=== PATIENT | female | born 1980 | race Caucasian/White ===

== ENCOUNTER 2016-12-23 11:53 | Inpatient (IN) | payer BC ==
[~2016-12-23] VITALS: Ht 162.6 cm; Wt 61.2 kg
[2016-12-23] MEDS ORDERED: NKM (12:03)
[2016-12-23 13:03] LABS: MEAN CORPUSCULAR HGB CONC 34.1 G/DL (32.0-36.0); MEAN CORPUSCULAR VOLUME 91 FL (80-99); MEAN PLATELET VOLUME 8.4 FL (6.5-10.1); PLATELET COUNT 218 K/UL (150-450); RED BLOOD COUNT 5.24 M/UL (4.20-5.40); RED CELL DISTRIBUTION WIDTH 10.9 % (11.6-14.8); WHITE BLOOD COUNT 12.1 K/UL (4.8-10.8)
[2016-12-23 13:12] VITALS: BP 118/57
[2016-12-23 13:13] LABS: INR 1.1 (0.9-1.1); PROTHROMBIN TIME 11.4 SEC (9.30-11.50)
[2016-12-23 13:17] LABS: TROPONIN I < 0.30 ng/mL (<=0.30)
[2016-12-23 13:20] LABS: ALANINE AMINOTRANSFERASE 10 U/L (3-33); ALBUMIN/GLOBULIN RATIO 1.3 (1.0-2.7); ANION GAP 18 (5-15); ASPARTATE AMINO TRANSFERASE 16 U/L (5-40); CALCIUM 9.2 mg/dL (8.6-10.2); CARBON DIOXIDE 24 mEQ/L (20-30); CHLORIDE 93 mEQ/L (98-107); CREATININE 1.1 mg/dL (0.5-0.9); GLOMERULAR FILTRATION RATE 55.9 mL/min (>60); HEMOLYSIS 0; LIPASE 20 U/L (< 60); POTASSIUM 3.8 mEQ/L (3.4-4.9); SODIUM 135 mEQ/L (135-145); TOTAL PROTEIN 7.5 g/dL (6.6-8.7)
[2016-12-23 13:29] LABS: BAND NEUTROPHILS % (MANUAL) 2 % (0-8); BASOPHILS % (MANUAL) 0 % (0-2); EOSINOPHILS % (MANUAL) 1 % (0-3); LYMPHOCYTES % (MANUAL) 1 % (20-45); NEUTROPHILS % (MANUAL) 93 % (45-75); PLATELET ESTIMATE ADEQUATE; PLATELET MORPHOLOGY NORMAL; TOTAL CELLS COUNTED 100
[2016-12-23 13:30] LABS: ANISOCYTOSIS 1+
[2016-12-23 13:31] LABS: CKMB < 1.5 ng/mL (< 3.8)
[2016-12-23 13:41] LABS: BILIRUBIN,DIRECT 0.3 mg/dL (0.1-0.3)
[2016-12-23] MEDS ORDERED: Albuterol ud Inhalation HHN ONE (14:30)
[2016-12-23] MEDS ORDERED: Ipratropium 0.02% Inh Soln 2.5ml UD HHN ONE (14:30)
[2016-12-23] MEDS ORDERED: Solu-MEDROL 125mg Inj IVP ONE (14:30)
--- NOTE | 2016-12-23 14:33 | Diagnostic Imaging Report ---
ndication: SOB Technique: IV administration nonionic contrast. Spiral acquisitions obtained from the lung bases to the lung apices. Multiplanar and 3-D reconstructions were generated. Total dose length product findings 7 mGycm. CTDIvol(s) 12, 12, 16 mGy Comparison: None Findings: No intraluminal filling defects or other findings to suggest acute pulmonary embolus demonstrated. Normal caliber thoracic aorta without evidence of dissection. Normal great vessel origins. Normal caliber pulmonary arteries. No right ventricular dilatation. There is some scarring at the lung apices. Occasional areas of atelectasis and some scattered patchy groundglass opacities are seen bilaterally. No infiltrates. No masses. The heart size is normal. No pericardial effusion. There are prominent subcarinal lymph nodes, measuring up to 25 mm long axis dimension. Prominent soft tissue in the pulmonary olga likely reflect prominent lymph nodes as well.. The included portions of the thyroid are unremarkable. Included abdominal viscera are unremarkable. Impression: Negative for acute pulmonary embolus or other acute thoracic vascular pathology Scattered areas of atelectasis. Scattered groundglass opacities are also present, nonspecific. These may also represent areas of atelectasis, could represent focal areas of inflammation, amongst many differential possibilities. Borderline bilateral hilar and subcarinal lymphadenopathy. Nonspecific as regards etiology Findings discussed by phone with Dr. Solis at the time of interpretation The CT scanner at [facility] is accredited by the [employer] and the scans are performed using protocols designed to limit radiation exposure to as low as reasonably achievable to attain images of sufficient resolution adequate for diagnostic evaluation.
--- NOTE | 2016-12-23 14:40 | Emergency Room Report ---
History of Present Illness General Chief Complaint: Chest Pain Source: Patient, Family Member Present Illness HPI Patient reports that last night he would doing exercises dancing technique at home Soon after that the patient had mild shortness of breath however since then the patient has had increased tightness in her chest this is associated with any shortness of breath sensation Denies any vomiting or diarrhea Denies any fevers or chills Patient is on control pills denies any recent travel Patient denies any obvious pleurisy however does continue to describe a chest tightness sensation Patient reports having asthma as a child but has not had any problems since then Allergies: Coded Allergies: No Known Allergies (Unverified , 12/23/16) Patient History Past Medical History: see triage record Pertinent Family History: none Last Menstrual Period: 12/09/16 Now: No Reviewed Nursing Documentation: PMH: Agreed, PSxH: Agreed Nursing Documentation-PMH Past Medical History: No History, Except For Hx Asthma: Yes Review of Systems All Other Systems: negative except mentioned in HPI Physical Exam Vital Signs Date Time Temp Pulse Resp B/P Pulse Ox O2 Delivery O2 Flow Rate FiO2 12/23/16 11:59 99.3 117 18 106/63 96 Room Air Sp02 EP Interpretation: reviewed, normal General Appearance: mild distress - appears uncomfortable Head: normocephalic, atraumatic Eyes: bilateral eye EOMI, bilateral eye PERRL ENT: hearing grossly normal, normal pharynx, TMs + canals normal, uvula midline Neck: full range of motion, supple, no meningismus, no bony tend Respiratory: no rhonchi, no retraction, no accessory muscle use, other - Appears tachypneic, crackles diffusely Cardiovascular #1: no edema, no gallop, no JVD, no murmur, tachycardia Gastrointestinal: normal bowel sounds, non tender, soft, no mass, no organomegaly, non-distended, no guarding, no hernia, no pulsatile mass, no rebound Genitourinary: no CVA tenderness Musculoskeletal: normal inspection Neurologic: oriented x3, responsive, regional planner III-XII nml as tested, motor strength/ tone normal, sensory intact Psychiatric: mood/affect normal Skin: normal color, no rash, warm/dry, palpation normal Lymphatic: normal inspection, no adenopathy Medical Decision Making Diagnostic Impression: Primary Impression: Chest pain Additional Impression: Dyspnea ER Course Patient is a fairly complex patient with multiple differential to consideration including but not limited to cardiac cardiopulmonary and vascular emergencies Given the patient's tachypnea she was placed on oxygen CAT scan imaging shows multiple abnormal findings Patient lower also shows several borderlinechanges given these findings patient will require further inpatient care Labs Test 12/23/16 12:30 12/23/16 12:45 12/23/16 12:54 Urine HCG, Qualitative Negative White Blood Count 12.1 K/UL (4.8-10.8) Red Blood Count 5.24 M/UL (4.20-5.40) Hemoglobin 16.3 G/DL (12.0-16.0) Hematocrit 47.7 % (37.0-47.0) Mean Corpuscular Volume 91 FL (80-99) Mean Corpuscular Hemoglobin 31.0 PG (27.0-31.0) Mean Corpuscular Hemoglobin Concent 34.1 G/DL (32.0-36.0) Red Cell Distribution Width 10.9 % (11.6-14.8) Platelet Count 218 K/UL (150-450) Mean Platelet Volume 8.4 FL (6.5-10.1) Neutrophils (%) (Auto) % (45.0-75.0) Lymphocytes (%) (Auto) % (20.0-45.0) Monocytes (%) (Auto) % (1.0-10.0) Eosinophils (%) (Auto) % (0.0-3.0) Basophils (%) (Auto) % (0.0-2.0) Differential Total Cells Counted 100 Neutrophils % (Manual) 93 % (45-75) Lymphocytes % (Manual) 1 % (20-45) Monocytes % (Manual) 3 % (1-10) Eosinophils % (Manual) 1 % (0-3) Basophils % (Manual) 0 % (0-2) Band Neutrophils 2 % (0-8) Platelet Estimate Adequate Platelet Morphology Normal Red Blood Cell Morphology Anisocytosis 1+ Sodium Level 135 mEQ/L (135-145) Potassium Level 3.8 mEQ/L (3.4-4.9) Chloride Level 93 mEQ/L (98-107) Carbon Dioxide Level 24 mEQ/L (20-30) Anion Gap 18 (5-15) Blood Urea Nitrogen 8 mg/dL (7-23) Creatinine 1.1 mg/dL (0.5-0.9) Estimat Glomerular Filtration Rate 55.9 mL/min (>60) Glucose Level 175 mg/dL (74-106) Calcium Level 9.2 mg/dL (8.6-10.2) Total Bilirubin 2.5 mg/dL (0.0-1.2) Direct Bilirubin 0.3 mg/dL (0.1-0.3) Aspartate Amino Transf (AST/SGOT) 16 U/L (5-40) Alanine Aminotransferase (ALT/SGPT) 10 U/L (3-33) Alkaline Phosphatase 40 U/L (35-104) Total Creatine Kinase 84 U/L (26-140) Creatine Kinase MB < 1.5 ng/mL (< 3.8) Creatine Kinase MB Relative Index Troponin I < 0.30 ng/mL (<=0.30) Pro-B-Type Natriuretic Peptide 361 pg/mL (0-125) Total Protein 7.5 g/dL (6.6-8.7) Albumin 4.3 g/dL (3.5-5.2) Globulin 3.2 g/dL Albumin/Globulin Ratio 1.3 (1.0-2.7) Lipase 20 U/L (< 60) Prothrombin Time 11.4 SEC (9.30-11.50) Prothromb Time International Ratio 1.1 (0.9-1.1) Activated Partial Thromboplast Time 27 SEC (23-33) Labs Test 12/23/16 12:30 12/23/16 12:45 12/23/16 12:54 Urine HCG, Qualitative Negative White Blood Count 12.1 K/UL (4.8-10.8) Red Blood Count 5.24 M/UL (4.20-5.40) Hemoglobin 16.3 G/DL (12.0-16.0) Hematocrit 47.7 % (37.0-47.0) Mean Corpuscular Volume 91 FL (80-99) Mean Corpuscular Hemoglobin 31.0 PG (27.0-31.0) Mean Corpuscular Hemoglobin Concent 34.1 G/DL (32.0-36.0) Red Cell Distribution Width 10.9 % (11.6-14.8) Platelet Count 218 K/UL (150-450) Mean Platelet Volume 8.4 FL (6.5-10.1) Neutrophils (%) (Auto) % (45.0-75.0) Lymphocytes (%) (Auto) % (20.0-45.0) Monocytes (%) (Auto) % (1.0-10.0) Eosinophils (%) (Auto) % (0.0-3.0) Basophils (%) (Auto) % (0.0-2.0) Differential Total Cells Counted 100 Neutrophils % (Manual) 93 % (45-75) Lymphocytes % (Manual) 1 % (20-45) Monocytes % (Manual) 3 % (1-10) Eosinophils % (Manual) 1 % (0-3) Basophils % (Manual) 0 % (0-2) Band Neutrophils 2 % (0-8) Platelet Estimate Adequate Platelet Morphology Normal Red Blood Cell Morphology Anisocytosis 1+ Sodium Level 135 mEQ/L (135-145) Potassium Level 3.8 mEQ/L (3.4-4.9) Chloride Level 93 mEQ/L (98-107) Carbon Dioxide Level 24 mEQ/L (20-30) Anion Gap 18 (5-15) Blood Urea Nitrogen 8 mg/dL (7-23) Creatinine 1.1 mg/dL (0.5-0.9) Estimat Glomerular Filtration Rate 55.9 mL/min (>60) Glucose Level 175 mg/dL (74-106) Calcium Level 9.2 mg/dL (8.6-10.2) Total Bilirubin 2.5 mg/dL (0.0-1.2) Direct Bilirubin 0.3 mg/dL (0.1-0.3) Aspartate Amino Transf (AST/SGOT) 16 U/L (5-40) Alanine Aminotransferase (ALT/SGPT) 10 U/L (3-33) Alkaline Phosphatase 40 U/L (35-104) Total Creatine Kinase 84 U/L (26-140) Creatine Kinase MB < 1.5 ng/mL (< 3.8) Creatine Kinase MB Relative Index Troponin I < 0.30 ng/mL (<=0.30) Pro-B-Type Natriuretic Peptide 361 pg/mL (0-125) Total Protein 7.5 g/dL (6.6-8.7) Albumin 4.3 g/dL (3.5-5.2) Globulin 3.2 g/dL Albumin/Globulin Ratio 1.3 (1.0-2.7) Lipase 20 U/L (< 60) Prothrombin Time 11.4 SEC (9.30-11.50) Prothromb Time International Ratio 1.1 (0.9-1.1) Activated Partial Thromboplast Time 27 SEC (23-33) EKG Diagnostic Results Rate: normal Rhythm: NSR ST Segments: no acute changes Rhythm Strip Diag. Results EP Interpretation: yes Rate: 88 Rhythm: NSR, no PVC's, no ectopy CT/MRI/US Diagnostic Results CT/MRI/US Diagnostic Results : Impression CT chestImpression: Negative for acute pulmonary embolus or other acute thoracic vascular pathology Scattered areas of atelectasis. Scattered groundglass opacities are also present, nonspecific. These may also represent areas of atelectasis, could represent focal areas of inflammation, amongst many differential possibilities. Borderline bilateral hilar and subcarinal lymphadenopathy. Nonspecific as regards etiology Last Vital Signs Date Time Temp Pulse Resp B/P Pulse Ox O2 Delivery O2 Flow Rate FiO2 12/23/16 13:12 105 20 Room Air 12/23/16 13:12 98.9 118/57 100 Status: improved Disposition: ADMITTED INPATIENT Condition: Serious Referrals: NON PHYSICIAN (PCP) LILIAN SHERWOOD D.O. Dec 23, 2016 14:40
[2016-12-23 16:55] VITALS: BP 114/60
[2016-12-23] MEDS ORDERED: LORazepam 1mg tab ORAL PRN (17:30)
[2016-12-23] MEDS ORDERED: Morphine Sulfate 2mg/ml Inj IVP PRN (17:30)
[2016-12-23] MEDS ORDERED: Zolpidem 5mg tab ORAL PRN (17:30)
[2016-12-23] MEDS ORDERED: Morphine Sulfate 4mg/ml Inj IVP PRN (17:30)
--- NOTE | 2016-12-23 19:10 | Consultation ---
Consult Note Assessment/Plan dict prob asthma exacerbation pneumonia cont abx, steroids, HHN COLEMAN REYES Dec 23, 2016 19:10
[2016-12-23] MEDS: Azithromycin 500 MG in D5W 275 ML IV SCH (19:32)
[2016-12-23] MEDS: DuoNeb 0.5-3(2.5)mg/3ml neb HHN SCH (19:46)
[2016-12-23] MEDS ORDERED: Milk of Magnesia 30ml Ud ORAL PRN (21:00)
[2016-12-23] MEDS ORDERED: Solu-MEDROL 40mg Inj IVP SCH (22:00)
--- NOTE | 2016-12-23 23:48 | Consultation ---
DATE OF CONSULTATION: 12/23/2016 PULMONARY CONSULTATION HISTORY OF PRESENT ILLNESS: The patient is a very pleasant 36-year-old woman, who states that she was having shortness of breath yesterday last evening when she was dancing. She was quite uncomfortable. At home, she was short of breath during the night again had some nausea. She had near-syncope. She came to the emergency department today. A CT angiogram of the chest showed no pulmonary emboli but showed some mild atelectasis or infiltrate. Admission was arranged. The patient has a history of asthma as a child and was hospitalized several times. She states that she grew out of it at age 11 and does not use any asthma medications now. She does have a history of recurrent syncope and previous evaluation has been negative. She is aware when she is going to pass out and gets down to the floor so that she does not fall. The patient has no current chest pain, wheezing, cough, sputum production, hemoptysis, fever, chills, sweats, or myalgias. She has no sick contacts. PAST MEDICAL HISTORY: Asthma as noted above as well as syncope. ALLERGIES: She does not tolerate theophylline. MEDICATIONS: control pills. REVIEW OF SYSTEMS: Otherwise unremarkable. SOCIAL HISTORY: She does not drink or smoke. She lives with her . PHYSICAL EXAMINATION: GENERAL: The patient is alert and responds appropriately. VITAL SIGNS: She had a temperature of 99.3 degrees and her heart rate was 117 when she came to the emergency department. Saturation was 96% on room air. She appears to be in mild distress and was tachypneic with some rales in the emergency department. On exam at the present, she is in no distress after getting a breathing treatment. HEENT: The head is normocephalic. NECK: No jugular venous distention. Lymph nodes are not enlarged. CHEST: Clear. CARDIAC: Rhythm is regular. ABDOMEN: Soft and nontender. EXTREMITIES: No edema. LABORATORY AND DIAGNOSTIC DATA: Laboratory studies and x-rays are reviewed. The white count, hemoglobin and platelet count are normal. The chemistry shows creatinine of 1.1. Blood sugar is 175. Bilirubin is 2.5. Troponin is negative. IMPRESSION: 1. Dyspnea likely due to asthma. 2. Pulmonary infiltrates possibly due to pneumonia. 3. History of recurrent syncope. PLAN: The patient is on appropriate antibiotic therapy. We will continue nebulizer treatments and order steroids to be continued. Early discharge is anticipated. Fredis Ricardo M.D. DR: JOSÉ JOB#: [id number] CC: Marco Sheldon M.D.; Fax#: [phone] Ricardo M.D. ; Fax#: [phone]
[2016-12-23] MEDS: Solu-MEDROL 40mg Inj IVP SCH (23:51)
[2016-12-24] VITALS: BP 108/49
[2016-12-24] MEDS: DuoNeb 0.5-3(2.5)mg/3ml neb HHN SCH ×4 (01:19→20:04)
[2016-12-24 04:00] VITALS: BP 100/42
[2016-12-24 08:33] VITALS: BP 100/48
[2016-12-24] MEDS: Solu-MEDROL 40mg Inj IVP SCH ×3 (08:56→23:39)
[2016-12-24] MEDS ORDERED: cefTRIAXone 1 GM in D5W 55 ML IV SCH ×2 (09:00→09:45)
[2016-12-24] MEDS ORDERED: cefTRIAXone 1 GM in NS 55 ML IV SCH (09:45)
[2016-12-24 11:48] VITALS: BP 95/52
[2016-12-24 16:00] VITALS: BP 104/47
[2016-12-24] MEDS ORDERED: Tubing IV Secondary IV ONE (17:09)
--- NOTE | 2016-12-24 18:21 | Pulmonology Progress Note ---
Assessment/Plan Assessment/Plan 1. Dyspnea likely due to asthma. 2. Pulmonary infiltrates possibly due to pneumonia. 3. History of recurrent syncope. no SOB now says she was on nitrofurantoin this can cause pulm infiltrates advised not to take any longer episodes of brief chest pressure for a few seconds x yrs ?esophageal spasm await echo disc w Dr Pito mccoy planning Subjective Cardiovascular: Reports: chest pain Allergies: Coded Allergies: No Known Allergies (Unverified , 12/23/16) Objective Last 24 Hour Vital Signs Date Time Temp Pulse Resp B/P Pulse Ox O2 Delivery O2 Flow Rate FiO2 12/24/16 16:00 97.7 88 21 104/47 98 12/24/16 15:50 78 16 100 Nasal Cannula 2.0 28 12/24/16 15:40 28 12/24/16 15:40 71 16 98 Nasal Cannula 2.0 28 12/24/16 12:00 99 12/24/16 11:48 97.0 80 18 95/52 96 Nasal Cannula 2.0 12/24/16 08:33 97.9 88 18 100/48 98 Room Air 12/24/16 08:00 84 12/24/16 07:48 81 16 100 Nasal Cannula 2.0 28 12/24/16 07:38 28 12/24/16 07:38 Nasal Cannula 2.0 28 12/24/16 07:38 78 15 98 Nasal Cannula 2.0 28 12/24/16 07:38 98 Nasal Cannula 2.0 28 12/24/16 04:00 79 12/24/16 04:00 97.2 71 20 100/42 96 Room Air 12/24/16 01:26 82 18 100 Nasal Cannula 2.0 12/24/16 01:19 28 12/24/16 01:19 85 18 99 Nasal Cannula 2.0 28 12/24/16 00:00 81 12/24/16 00:00 98.2 81 20 108/49 97 Room Air 12/23/16 20:00 99 18 99 Nasal Cannula 2.0 12/23/16 20:00 99 12/23/16 19:49 Nasal Cannula 2.0 28 12/23/16 19:49 97 Nasal Cannula 2.0 28 12/23/16 19:47 28 12/23/16 19:47 97 18 97 Nasal Cannula 2.0 28 12/23/16 19:47 97 18 Nasal Cannula 2.0 28 Intake and Output 12/23/16 12/24/16 19:00 07:00 # Voids 1 1 General Appearance: no acute distress Respiratory/Chest: lungs clear Cardiovascular: normal rate Current Medications Medications (Trade) Dose Ordered Sig/Serge Route PRN Reason Start Time Stop Time Status Last Admin Dose Admin Acetaminophen (Tylenol) 650 mg Q4H PRN ORAL Mild Pain (Pain Scale 1-3) 12/23/16 17:30 01/22/17 17:29 Albuterol/ Ipratropium 3 ml 3 ml Q6HRT HHN 12/23/16 19:00 12/28/16 18:59 12/24/16 15:39 Azithromycin/ Dextrose (Zithromax/D5W) 275 ml @ 275 mls/hr Q24H IV 12/23/16 19:00 12/30/16 18:59 12/23/16 19:32 Ceftriaxone Sodium/Sodium Chloride (Rocephin/Sodium Chloride) 55 ml @ 110 mls/hr Q24H IV 12/25/16 09:00 12/31/16 08:59 Lorazepam (Ativan) 1 mg Q4H PRN ORAL For Anxiety 12/23/16 17:30 12/30/16 17:29 Magnesium Hydroxide (Mom) 30 ml HSPRN PRN ORAL Constipation 12/23/16 21:00 01/22/17 20:59 Methylprednisolone Sodium Succinate 40 mg 40 mg Q8H IVP 12/24/16 00:00 01/23/17 00:00 12/24/16 16:43 Morphine Sulfate (Morphine Sulfate) 2 mg Q3H PRN IVP Moderate Pain (Pain Scale 4-6) 12/23/16 17:30 12/30/16 17:29 Morphine Sulfate (Morphine Sulfate) 4 mg Q3H PRN IVP Severe Pain (Pain Scale 7-10) 12/23/16 17:30 12/30/16 17:29 Ranitidine HCl (Zantac) 300 mg DAILY ORAL 12/23/16 18:00 01/22/17 17:59 12/24/16 08:56 Zolpidem Tartrate (Ambien) 5 mg HSPRN PRN ORAL Insomnia 12/23/16 17:30 01/22/17 17:29 COLEMAN REYES Dec 24, 2016 18:21
[2016-12-24] MEDS: Azithromycin 500 MG in D5W 275 ML IV SCH (19:30)
[2016-12-24 20:00] VITALS: BP 114/46
--- NOTE | 2016-12-24 20:48 | History and Physical Report ---
DATE OF ADMISSION: 12/23/2016 CHIEF COMPLAINT: Shortness of breath. HISTORY OF PRESENT ILLNESS: This is a very pleasant 36-year-old white female, who was in her usual state of health until Wednesday night when she was dancing at home, apparently she was doing aerobics. After that, she continued to be short of breath and this lasted until the following day. Finally, she is not worried and they came to the emergency room. She was diagnosed with pneumonia and was admitted. The patient has had a history of asthma as a child, but she says she has not had any asthma attacks for a long time. Also, she denies any exercise-induced asthma before. Prior to this episode, she was fine and she did not have any respiratory symptoms. PAST MEDICAL HISTORY: She had the episode of feeling that she would pass out usually when she does not stand well or if she has not had enough fluids. Other than that, it is unremarkable. MEDICATIONS: She takes control pills. ALLERGIES: She is intolerant to theophylline. SOCIAL HISTORY: She is and lives with . REVIEW OF SYSTEMS: Noncontributory except above. PHYSICAL EXAMINATION: GENERAL: The patient is a pleasant female, in no acute distress. VITAL SIGNS: Blood pressure is 100/48, pulse 88, temperature 97.9 degrees, and respiratory rate is 18. HEENT: [place] conjunctivae. Anicteric sclerae. NECK: Supple. LUNGS: Clear to auscultation. HEART: S1 and S2 without murmurs or rubs. ABDOMEN: Soft and nontender. EXTREMITIES: No cyanosis or edema. LABORATORY FINDINGS: CBC shows a WBC of 12.1, hematocrit is 47.7, hemoglobin 16.3, and platelet is 218,000. Chemistry panel shows serum sodium 135, potassium 3.8, chloride 93, CO2 24, BUN 8, and creatinine 1.1. Blood sugar is 175. ASSESSMENT: This is a 36-year-old female, who is admitted with shortness of breath. She did have a CAT scan in the emergency room and this showed no pulmonary embolism, however, the patient had scattered ground-glass opacities also present with possibility of inflammation, and borderline bilateral hilar and subcarinal lymphadenopathy, nonspecific. The patient has been diagnosed with pneumonia based on those results. She has also sought elevated bilirubin, although LFTs were normal. The significance of this is not known. PLAN: The patient will be on bronchodilators and intravenous antibiotics. I will repeat the laboratories tomorrow including a CMP again to check in the bilirubin level. Also, I ordered the hemoglobin A1c the because of the elevated blood sugar although it was not fasting. Marco Sheldon M.D. DR: MARTINE JOB#: [id number] CC: CHRISTIANO
[2016-12-25 00:28] VITALS: BP 101/55
[2016-12-25] MEDS: DuoNeb 0.5-3(2.5)mg/3ml neb HHN SCH ×3 (00:32→13:27)
[2016-12-25 04:02] VITALS: BP 103/56
[2016-12-25 05:10] LABS: MEAN CORPUSCULAR HEMOGLOBIN 31.7 PG (27.0-31.0); MEAN CORPUSCULAR HGB CONC 34.2 G/DL (32.0-36.0); MEAN CORPUSCULAR VOLUME 93 FL (80-99); MEAN PLATELET VOLUME 9.2 FL (6.5-10.1); PLATELET COUNT 205 K/UL (150-450); RED BLOOD COUNT 4.23 M/UL (4.20-5.40); RED CELL DISTRIBUTION WIDTH 11.6 % (11.6-14.8)
[2016-12-25 05:40] LABS: ALANINE AMINOTRANSFERASE 9 U/L (3-33); ALBUMIN/GLOBULIN RATIO 1.1 (1.0-2.7); ANION GAP 16 (5-15); ASPARTATE AMINO TRANSFERASE 10 U/L (5-40); CALCIUM 8.8 mg/dL (8.6-10.2); CARBON DIOXIDE 22 mEQ/L (20-30); CHLORIDE 101 mEQ/L (98-107); CREATININE 0.8 mg/dL (0.5-0.9); GLOMERULAR FILTRATION RATE > 60 mL/min (>60); HEMOLYSIS 2; POTASSIUM 4.2 mEQ/L (3.4-4.9); SODIUM 139 mEQ/L (135-145); TOTAL PROTEIN 6.3 g/dL (6.6-8.7)
[2016-12-25 07:01] LABS: HEMOGLOBIN A1C 4.8 % (< 6.0)
[2016-12-25 07:39] VITALS: BP 111/52
[2016-12-25] MEDS: Solu-MEDROL 40mg Inj IVP SCH (08:06)
[2016-12-25 08:40] LABS: BAND NEUTROPHILS % (MANUAL) 3 % (0-8); BASOPHILS % (MANUAL) 0 % (0-2); EOSINOPHILS % (MANUAL) 1 % (0-3); LYMPHOCYTES % (MANUAL) 5 % (20-45); NEUTROPHILS % (MANUAL) 87 % (45-75); PLATELET ESTIMATE ADEQUATE; PLATELET MORPHOLOGY NORMAL; TOTAL CELLS COUNTED 100
[2016-12-25] MEDS ORDERED: cefTRIAXone 1 GM in NS 55 ML IV SCH (09:00)
[2016-12-25 11:15] VITALS: BP 101/52
--- NOTE | 2016-12-25 12:18 | Pulmonology Progress Note ---
Assessment/Plan Assessment/Plan 1. Dyspnea likely due to asthma. 2. Pulmonary infiltrates possibly due to pneumonia. 3. History of recurrent syncope. no SOB now says she was on nitrofurantoin this can cause pulm infiltrates advised not to take any longer episodes of brief chest pressure for a few seconds x yrs ?esophageal spasm echo looks OK dc planning on Advair, steroid taper and complete abx Subjective Respiratory: Denies: shortness of breath Allergies: Coded Allergies: No Known Allergies (Unverified , 12/23/16) Objective Last 24 Hour Vital Signs Date Time Temp Pulse Resp B/P Pulse Ox O2 Delivery O2 Flow Rate FiO2 12/25/16 11:15 97.7 74 18 101/52 98 Room Air 12/25/16 08:00 86 12/25/16 07:39 97.7 76 18 111/52 95 Nasal Cannula 2.0 12/25/16 07:29 76 18 99 Room Air 12/25/16 07:20 97 Room Air 12/25/16 07:20 Room Air 12/25/16 07:20 71 16 97 Room Air 12/25/16 04:02 98.6 69 18 103/56 94 12/25/16 04:00 75 12/25/16 00:41 96 12 99 Room Air 12/25/16 00:33 91 12 96 Room Air 12/25/16 00:28 98.3 76 19 101/55 96 Room Air 12/25/16 00:00 76 12/24/16 20:14 106 16 99 Room Air 12/24/16 20:07 96 Room Air 12/24/16 20:07 Room Air 12/24/16 20:06 96 14 98 Room Air 12/24/16 20:00 96 12/24/16 20:00 97.3 91 20 114/46 98 Room Air 12/24/16 16:00 97.7 88 21 104/47 98 12/24/16 16:00 88 12/24/16 15:50 78 16 100 Nasal Cannula 2.0 28 12/24/16 15:40 28 12/24/16 15:40 71 16 98 Nasal Cannula 2.0 28 Intake and Output 12/24/16 12/25/16 19:00 07:00 Intake Total 350 ml 575 ml Balance 350 ml 575 ml Intake Oral 240 ml 300 ml IV Total 110 ml 275 ml # Voids 2 1 General Appearance: no acute distress Respiratory/Chest: lungs clear Cardiovascular: normal rate Microbiology Date/Time Source Procedure Growth Status 12/23/16 12:50 Blood Blood Culture - Preliminary NO GROWTH AFTER 24 HOURS Resulted 12/23/16 12:50 Blood Blood Culture - Preliminary NO GROWTH AFTER 24 HOURS Resulted Laboratory Tests 12/25/16 03:30: White Blood Count 19.0H, Red Blood Count 4.23, Hemoglobin 13.4, Hematocrit 39.2 , Mean Corpuscular Volume 93, Mean Corpuscular Hemoglobin 31.7H, Mean Corpuscular Hemoglobin Concent 34.2, Red Cell Distribution Width 11.6, Platelet Count 205, Mean Platelet Volume 9.2, Neutrophils (%) (Auto) , Lymphocytes (%) ( Auto) , Monocytes (%) (Auto) , Eosinophils (%) (Auto) , Basophils (%) (Auto) , Differential Total Cells Counted 100, Neutrophils % (Manual) 87H, Lymphocytes % (Manual) 5L, Monocytes % (Manual) 4, Eosinophils % (Manual) 1, Basophils % ( Manual) 0, Band Neutrophils 3, Platelet Estimate Adequate, Platelet Morphology Normal, Red Blood Cell Morphology Normal, Sodium Level 139, Potassium Level 4.2 , Chloride Level 101, Carbon Dioxide Level 22, Anion Gap 16H, Blood Urea Nitrogen 11, Creatinine 0.8, Estimat Glomerular Filtration Rate > 60, Glucose Level 255H, Hemoglobin A1c 4.8, Calcium Level 8.8, Total Bilirubin 0.4, Aspartate Amino Transf (AST/SGOT) 10, Alanine Aminotransferase (ALT/SGPT) 9, Alkaline Phosphatase 35, Total Protein 6.3L, Albumin 3.3L, Globulin 3.0, Albumin /Globulin Ratio 1.1 Current Medications Medications (Trade) Dose Ordered Sig/Serge Route PRN Reason Start Time Stop Time Status Last Admin Dose Admin Acetaminophen (Tylenol) 650 mg Q4H PRN ORAL Mild Pain (Pain Scale 1-3) 12/23/16 17:30 01/22/17 17:29 Albuterol/ Ipratropium 3 ml 3 ml Q6HRT HHN 12/23/16 19:00 12/28/16 18:59 12/25/16 07:20 Azithromycin/ Dextrose (Zithromax/D5W) 275 ml @ 275 mls/hr Q24H IV 12/23/16 19:00 12/30/16 18:59 12/24/16 19:30 Ceftriaxone Sodium/Sodium Chloride (Rocephin/Sodium Chloride) 55 ml @ 110 mls/hr Q24H IV 12/25/16 09:00 12/31/16 08:59 12/25/16 08:12 Lorazepam (Ativan) 1 mg Q4H PRN ORAL For Anxiety 12/23/16 17:30 12/30/16 17:29 Magnesium Hydroxide (Mom) 30 ml HSPRN PRN ORAL Constipation 12/23/16 21:00 01/22/17 20:59 Methylprednisolone Sodium Succinate 40 mg 40 mg Q8H IVP 12/24/16 00:00 01/23/17 00:00 12/25/16 08:06 Morphine Sulfate (Morphine Sulfate) 2 mg Q3H PRN IVP Moderate Pain (Pain Scale 4-6) 12/23/16 17:30 12/30/16 17:29 Morphine Sulfate (Morphine Sulfate) 4 mg Q3H PRN IVP Severe Pain (Pain Scale 7-10) 12/23/16 17:30 12/30/16 17:29 Ranitidine HCl (Zantac) 300 mg DAILY ORAL 12/23/16 18:00 01/22/17 17:59 12/25/16 08:06 Zolpidem Tartrate (Ambien) 5 mg HSPRN PRN ORAL Insomnia 12/23/16 17:30 01/22/17 17:29 COLEMAN REYES Dec 25, 2016 12:18
[2016-12-25] MEDS ORDERED: ADVAIR 250-501 EACH INH (14:15)
[2016-12-25] MEDS ORDERED: AUGMENTIN 500-1 EACH ORAL (14:16)
[2016-12-25] MEDS ORDERED: PREDNISONE20 M1 PO (14:21)
--- NOTE | 2016-12-25 14:31 | Consultation ---
Consult Note Assessment/Plan Dc dictated # [id number] JANES BACON Dec 25, 2016 14:31
--- NOTE | 2016-12-25 22:28 | Discharge Summary ---
DATE OF ADMISSION: 12/23/2016 DATE OF DISCHARGE: 12/25/2016 CHIEF COMPLAINT: Shortness of breath. HISTORY OF PRESENT ILLNESS: This is a 36-year-old female who was admitted after she developed shortness of breath at home. The details in the History and Physical. The patient was diagnosed with pneumonia. HOSPITAL COURSE: The patient was started on IV antibiotics, ceftriaxone, and also azithromycin. Also, she was started on bronchodilators ipratropium and albuterol via hand-held nebulizer and IV methylprednisolone 40 mg every eight hours. The patient was seen by Dr. Ricardo in pulmonary consultation whose impression was that the dyspnea was likely to asthma. The patient's symptoms improved and she was sent home on 12/25/2016 with a plan to taper off her steroids. She was started on by mouth prednisone. She was also started on Advair inhaler as well as Augmentin by mouth. The patient was encouraged to come to my office for follow up. DISCHARGE DIAGNOSES: 1. Pneumonia. 2. Asthma exacerbation. Marco Sheldon M.D. DR: DEB JOB#: [id number] CC:
--- NOTE | 2016-12-29 11:35 | Cardiology Report ---
APPROVED REPORT EXAM: Two-dimensional and M-mode echocardiogram with Doppler and color Doppler. INDICATION Shortness of Breath M-Mode DIMENSIONS IVSd1.1 (0.7-1.1cm)Left Atrium (MM)3.6 (1.6-4.0cm) LVDd3.9 (3.5-5.6cm)Aortic Root2.5 (2.0-3.7cm) PWd1.1 (0.7-1.1cm)Aortic Cusp Exc.1.5 (1.5-2.0cm) LVDs2.4 (2.5-4.0cm) PWs1.8 cm Normal left ventricular chamber size, systolic function and wall motion. Left ventricular ejection fraction estimated to be 55 %. No evidence of ventricular hypertrophy. No evidence of pericardial fat or effusion. All other cardiac chamber sizes are within normal limits. Mild focal aortic valve sclerosis with adequate cusp excursion. Mildly thickened mitral valve leaflets with normal excursion. Mild mitral annulus and aortic root calcification. Pulmonic valve not well visualized. Normal tricuspid valve structure. A color flow and spectral Doppler study was performed and revealed: No aortic regurgitation. Trace mitral regurgitation. Mitral inflow velocities indicates normal left ventricular diastolic function. Trace tricuspid regurgitation. Tricuspid systolic velocities suggests peak right ventricular systolic pressure of 20 mmHg. No pulmonic regurgitation present.
== END 2016-12-25 15:09 | disposition home or self-care (01) | DRG 194 ==
LOC: EMR 12:48 → 2E 15:00 → EDBEDREQ 15:56
DX: J18.9 Pneumonia, unspecified organism (principal); J45.901 Unspecified asthma with (acute) exacerbation
CPT/HCPCS: 36415; 71275; 80053; 81025; 82248; 82550; 82553; 83036; 83690; 83880; 84484; 85007; 85025; 85610; 85730; 87040; 93005; 93306; 94640; 94664; 94760; J7620